=== PATIENT | female | born 1980 | race Native Hawaiian/Other Pacific Islander ===

== ENCOUNTER 2016-07-06 16:55 | Outpatient (CLI) | payer OTHER ==
[~2016-07-06 16:55] MED LIST: APRI OR; ENSKYCE OR; FLUT0.05 NAS; HYDRALAZINE25 MG PO; MAXALT-MLT10 MG OR; NEXIUM20 M1 PO; VITAMIN D400 UNIT OR
== END 2016-07-06 19:36 | disposition home or self-care (01) ==
LOC: LAB 16:55
DX: N39.0 Urinary tract infection, site not specified (principal)
CPT/HCPCS: 81000; 87077; 87086; 87088; 87186

== ENCOUNTER 2016-08-17 16:21 | Outpatient (CLI) | payer OTHER | END 2016-08-17 22:54 | disposition home or self-care (01) | LOC: RAD 16:21 | DX: G43.909 Migraine, unspecified, not intractable, without status migrainosus (principal); M54.2 Cervicalgia; M54.10 Radiculopathy, site unspecified ==

== ENCOUNTER 2016-09-09 11:57 | Outpatient (CLI) | payer OTHER | END 2016-09-09 21:40 | disposition home or self-care (01) | LOC: CT 11:57 | DX: G43.909 Migraine, unspecified, not intractable, without status migrainosus (principal); R42 Dizziness and giddiness ==

== ENCOUNTER 2017-05-17 10:14 | Outpatient (CLI) | payer OTHER ==
[2017-05-17 10:36] LABS: PLATELET COUNT 307 K/uL (152-353)
[2017-05-17 11:22] LABS: POTASSIUM 3.5 mmol/L (3.6-5.2)
== END 2017-05-17 19:34 | disposition home or self-care (01) ==
LOC: LABW 10:14
PROVIDERS: Specialist
DX: G43.019 Migraine without aura, intractable, without status migrainosus (principal)
CPT/HCPCS: 36415; 80053; 85027; 85651; 86039